=== PATIENT | male | born 1960 | race Caucasian/White ===

== ENCOUNTER 2016-07-06 10:14 | Emergency (ER) | payer OTHER ==
--- NOTE | 2016-07-06 10:53 | ED ORDER SUMMARY ---
..... Patient: RAMEZ KAUR OrderSheet [facility] VisitID: [id number] [address] [place] [address] 55y, M Registration Date/Time: 07/06/2016 ORDER SHEET Weight: 74.8 kg (stated) Allergies: No Known Drug Allergy GENERAL ORDERS: Chest 1V Urgent (10:07/06/2016 PHutchinson DO) (Ack 10:30 KHoerner) (10:34 PHutchinson DO) (Cancelled: Other10:34 PHutchinson DO) Inshore Undersea Warfare Officer (Continuous) (:07/06/2016 PHutchinson DO) (10:33 PHutchinson DO) (Cancelled: Other10:33 PHutchinson DO) UA-Culture if indicated Urgent (:07/06/2016 PHutchinson DO) (Ack 10:30 KHoerner) (10:33 PHutchinson DO) (Cancelled: Other10:33 PHutchinson DO) Cardiac Panel Stat (:07/06/2016 PHutchinson DO) (Ack 10:30 KHoerner) (10:33 PHutchinson DO) (Cancelled: Other10:33 PHutchinson DO) BNP Urgent (:07/06/2016 PHutchinson DO) (Ack 10:30 KHoerner) (10:34 PHutchinson DO) (Cancelled: Other10:34 PHutchinson DO) Amylase Urgent (:07/06/2016 PHutchinson DO) (Ack 10:30 KHoerner) (10:34 PHutchinson DO) (Cancelled: Other10:34 PHutchinson DO) Lipase Urgent (:07/06/2016 PHutchinson DO) (Ack 10:30 KHoerner) (10:34 PHutchinson DO) (Cancelled: Other10:34 PHutchinson DO) PT with INR Urgent (:07/06/2016 PHutchinson DO) (Ack 10:30 KHoerner) (10:34 PHutchinson DO) (Cancelled: Other10:34 PHutchinson DO) Oxygen (2 L/min) (NC) (10:07/06/2016 [facility]) (10:[facility]) (Cancelled: Other10:33 [facility] DO) Pulse oximeter (10:07/06/2016 [facility]) (Cancelled: Other10:36 MWinterer R.N.) EKG - ER Stat (10:07/06/2016 [facility]) (10:33 [facility] DO) (Cancelled: Other10:33 [facility] DO) Vitals (10:07/06/2016 [facility]) (10:36 MWinterer R.N.) MEDICATION ORDERS: Aspirin PO 325 mg (NOW) (10:07/06/2016 [facility]) (Cancelled: Other10:34 [facility]) Ibuprofen PO 600 mg (NOW) (10:07/06/2016 [facility]) (Ack 10:36 MWinterer R.N.) (10:41 MWinterer R.N.) Zofran ODT PO 4 mg (NOW) (10:07/06/2016 [facility]) (Ack 10:36 MWinterer R.N.) (Cancelled: Patient [id number]:41 MWinterer R.N.) IV FLUIDS: IV NS : initial bolus 500 mL (1000 mL/hr), then 250 mL/hr for X2 (NOW) (10:07/06/2016 [facility]) (Cancelled: Other10:34 [facility]) ORDER SHEET NOTES: [Electronically signed by Sharon Vee R.N. (11:07/06/2016)] [Electronically signed by Juancho Brush DO (15:02 07/06/2016)] [Electronically locked/signed by Sharon Vee R.N. (11:07/06/2016)]
--- NOTE | 2016-07-06 10:53 | ED ORDER SUMMARY ---
..... Patient: RAMEZ KAUR OrderSheet [facility] VisitID: [id number] [address] [place] [address] 55y, M Registration Date/Time: 07/06/2016 ORDER SHEET Weight: 74.8 kg (stated) Allergies: No Known Drug Allergy GENERAL ORDERS: Chest 1V Urgent (10:07/06/2016 PHutchinson DO) (Ack 10:30 KHoerner) (10:34 PHutchinson DO) (Cancelled: Other10:34 PHutchinson DO) Movement Therapist (Continuous) (:07/06/2016 PHutchinson DO) (10:33 PHutchinson DO) (Cancelled: Other10:33 PHutchinson DO) UA-Culture if indicated Urgent (:07/06/2016 PHutchinson DO) (Ack 10:30 KHoerner) (10:33 PHutchinson DO) (Cancelled: Other10:33 PHutchinson DO) Cardiac Panel Stat (:07/06/2016 PHutchinson DO) (Ack 10:30 KHoerner) (10:33 PHutchinson DO) (Cancelled: Other10:33 PHutchinson DO) BNP Urgent (:07/06/2016 PHutchinson DO) (Ack 10:30 KHoerner) (10:34 PHutchinson DO) (Cancelled: Other10:34 PHutchinson DO) Amylase Urgent (:07/06/2016 PHutchinson DO) (Ack 10:30 KHoerner) (10:34 PHutchinson DO) (Cancelled: Other10:34 PHutchinson DO) Lipase Urgent (:07/06/2016 PHutchinson DO) (Ack 10:30 KHoerner) (10:34 PHutchinson DO) (Cancelled: Other10:34 PHutchinson DO) PT with INR Urgent (:07/06/2016 PHutchinson DO) (Ack 10:30 KHoerner) (10:34 PHutchinson DO) (Cancelled: Other10:34 PHutchinson DO) Oxygen (2 L/min) ([place]) (10:07/06/2016 [facility] DO) (10:33 [facility]) (Cancelled: Other10:33 [facility] DO) Pulse oximeter (10:07/06/2016 [facility]) (Cancelled: Other10:36 MWinterer R.N.) EKG - ER Stat (10:07/06/2016 [facility]) (10:33 [facility] DO) (Cancelled: Other10:33 [facility] DO) Vitals (10:07/06/2016 [facility]) (10:36 MWinterer R.N.) MEDICATION ORDERS: Aspirin PO 325 mg (NOW) (10:07/06/2016 [facility]) (Cancelled: Other10:34 [facility]) Ibuprofen PO 600 mg (NOW) (10:07/06/2016 [facility]) (Ack 10:36 MWinterer R.N.) (10:41 MWinterer R.N.) Zofran ODT PO 4 mg (NOW) (10:07/06/2016 [facility]) (Ack 10:36 MWinterer R.N.) (Cancelled: Patient [id number] MWinterer R.N.) IV FLUIDS: IV NS : initial bolus 500 mL (1000 mL/hr), then 250 mL/hr for X2 (NOW) (10:07/06/2016 [facility]) (Cancelled: Other10:34 [facility]) ORDER SHEET NOTES: [Electronically signed by Sharon Vee R.N. (11:07/06/2016)] [Electronically signed by Juancho Brush DO (15:02 07/06/2016)] [Electronically locked/signed by Sharon Vee R.N. (11:07/06/2016)]
--- NOTE | 2016-07-06 10:53 | ED NURSING NOTES ---
Clinical Report - Nurses [facility] [place] [address] [address] 07/06/2016 10:21 Patient: RAMEZ KAUR TRIAGE Acuity: LEVEL 3. Chief Complaint: RIGHT UPPER EXTREMITY PAIN. Alert. No acute distress. SEPSIS SCREEN: Sepsis Screen. Negative (no infection suspected/documented). WILEY COMA SCORE: Wiley Coma Scale: 15- eyes open spontaneously (4); best verbal response- oriented x 4 (5); best motor response- obeys commands (6). --10:35 Sharon Vee R.N. 10:27 07/06/16. BP: 108/81. HR: 74. RR: 20. O2 saturation: 96% on room air. Temp: 98.1 F (oral). Pain level now: 10/25. --10:35 Sharon Vee R.N. Weight: 74.8 kg stated. Height/Length: 70 inches Per Patient. BMI: 23.7. --10:34 Sharon Vee R.N. Medications None. --10:33 Sharon Vee R.N. Medication/allergy information source: the patient. --10:35 Sharon Vee R.N. Allergies No Known Drug Allergy. --10:33 Sharon Vee R.N. History Arrived by private vehicle. Historian: patient. Accompanied by spouse. Primary physician (none). This occurred (3 days ago). ( Pt reports he had cellulitis in his right arm approx 3 years ago and was hospitalized. He states the same symptoms now.). Has had no swelling. No fever, skin rash or itching. Treatment SPORTS JOURNALIST: None. SOCIAL HX: Current every day heavy tobacco smoker (cigarette). History of occasional drug use: marijuana. No alcohol use. FALL RISK ASSESSMENT: Fall risk assessment completed. No fall risk identified. NUTRITIONAL RISK ASSESSMENT: The nutritional risk assessment revealed no deficiencies. FUNCTIONAL ASSESSMENT: Functional assessment: no impairments noted. LEARNING NEEDS ASSESSMENT: The learning needs assessment revealed no barriers. SKIN INTEGRITY ASSESSMENT: Skin integrity risk assessment completed. No skin integrity risk identified. --10:35 Sharon Vee R.N. Assessment GENERAL / NEURO / PSYCH: Alert. Oriented X 4. Appears in no acute distress. Patient appears calm and cooperative. RESPIRATORY: Respirations not labored. CVS: Capillary refill less than 2 seconds. GI / : Abdomen nontender. SKIN: Mucous membranes are pink. Skin is warm and dry. --10:35 Sharon Vee R.N. Interventions ID band on patient. To treatment room. --10:35 Sharon Vee R.N. PHYSICAL ASSESSMENT 10:35 07/06/16. Ambulatory to room. GENERAL / NEURO / PSYCH: Oriented X 4. Alert. Appears in no acute distress. EXTREMITIES: Extremities exhibit normal ROM. Neuro-vascular status intact to the extremity. No upper extremity edema. Right arm: tenderness. SKIN: Skin intact. Skin is warm and dry. --10:35 Sharon Vee R.N. NURSING PROGRESS NOTES 10:35 07/06/16. Patient gowned. Two patient identifiers checked. Call light placed in reach. Side rails up x 2. Bed placed in lowest position. Brakes of bed on. Patient ready for evaluation- chart flagged. --10:35 Sharon Vee R.N. 10:41 07/06/2016 Ibuprofen PO 600 mg given. Allergies verified and confirmed 5 rights. --10:41 Sharon Vee R.N. DISPOSITION / DISCHARGE Departure time: 10:50 Jul 06 2016. Condition at departure: improved and stable. No learning barriers present. Reviewed medication(s) side effects, precautions and dosing information. Prescription(s) given to the patient (Ibuprophen 600 mg). Patient verbalized understanding. Written instructions provided in [place]. The patient was discharged by the physician. He was discharged home and accompanied by spouse. He left the Emergency Department ambulatory and via private vehicle. Spouse driving. --11:06 Sharon Vee R.N. 11:05 07/06/16. BP: deferred. --11:06 Sharon Vee R.N. Locked/Released at 07/06/2016 11:07 by Sharon Vee R.N.
--- NOTE | 2016-07-06 10:53 | ED CLINICAL REPORT ---
Clinical Report - Physicians/Mid Levels [facility] [address] [place] [address] 07/06/2016 10:21 Patient: RAMEZ KAUR Time Seen: 10:27. Arrived- By private vehicle. Historian- patient. HISTORY OF PRESENT ILLNESS Chief Complaint: UPPER EXTREMITY PAIN. Severity is described as being moderate in degree. The quality is noted to be "pain". No radiation. This started about 3 days ago and is still present. It was gradual in onset and has been waxing/waning. Modifying factors- worsened by movement. Made better by rest. Symptoms located in the area of the right arm and right forearm. No chest pain, difficulty breathing, swelling, sensory loss or motor loss. He has not had redness. (States has been doing some physical work recently, but does not recall a specific injury). Patient notes the possibility of an injury. Mechanism of injury- he was lifting (working with arm). Occurred at home. Similar symptoms previously: ( Pt reports he had cellulitis in his right arm approx 3 years ago and was hospitalized. He states similar symptoms now, but no redness or swelling now.). Recent medical care: Not recently seen/assessed. REVIEW OF SYSTEMS No fever, chills, headache, sore throat or cough. No skin rash, enlarged lymph nodes, neck pain, abdominal pain or nausea. No vomiting, diarrhea, black stools, difficulty with urination or urinary frequency. No hematuria or bloody stools. No skin break that he is aware of. No injection drug use. PAST HISTORY See nurses notes. No history of peripheral vascular disease or DVT. The patient's dominant hand is the right. Has not had recent surgery or recent [place]. No history of CHF, cancer, DVT or pulmonary embolism or umbrella filter. Does not have advanced age as a risk factor or immobility as a risk factor. Is not obese. Cellulitis. Surgeries: No history of previous surgery. SOCIAL HISTORY Smoker- current status unknown. History of occasional drug use: marijuana. No alcohol use. ADDITIONAL NOTES The nursing notes have been reviewed. PHYSICAL EXAM Vital Signs: 07/06/2016 10:27 BP: 108/81. HR: 74. RR: 20. O2 saturation: 96%. Temp: 98.1 F. Pain level now: 10/25. Appearance: Alert. Oriented X3. No acute distress. Eyes: Eyes normal inspection. No pale conjunctivae or scleral icterus. ENT: Pharynx normal. The mucous membranes are not dry. No pharyngeal erythema or tonsillar exudate. Neck: Normal inspection. Neck supple. CVS: Normal heart rate and rhythm. Heart sounds normal. Respiratory: No respiratory distress. Breath sounds normal. Abdomen: Soft and nontender. Back: Normal inspection. No tenderness. Skin: Skin intact. Skin warm and dry. Normal skin color. Normal skin turgor. (tattoo over the right forearm). Extremities: Right arm: mild tenderness located in the lateral aspect of lower arm. Neurovascular intact distally. No erythema, swelling, laceration, abrasion or ecchymosis. No puncture wound, foreign body or deformity. Right elbow. (no tenderness at the elbow joint). No tenderness or swelling. Right forearm: moderate tenderness located in the proximal radial aspect of forearm. Neurovascular intact distally. (localized to Brachioradialis M). No erythema, swelling, laceration, abrasion or ecchymosis. No puncture wound or foreign body. No deformity consistent with a fracture or dislocation. Extremities otherwise negative. Neuro: Oriented X 3. No motor deficit. No sensory deficit. LABS, X-RAYS, AND EKG Pulse Oximetry: 07/06/2016 10:27 O2 saturation: 96%. (FIO2 - room air). Interpretation: normal. PROGRESS AND PROCEDURES Course of Care: Ibuprofen 600 mg PO given. Zofran 4 mg ODT PO given. No signs of cellulitis / abscess or DVT now. Imaging or lab is not clinically indicated. Pt will need close out pt follow up which I have arranged. He is informed of the signs and symptoms to watch and follow up with pcp for and / or return to the ED. Patient/family counseled. Differential Diagnosis: I considered myocardial infarction, unstable angina, angina, aortic dissection, pericarditis, pulmonary embolism, pneumonia and pneumothorax as a possible cause of chest pain in this patient. Disposition: Discharged. Condition: stable and improved. CLINICAL IMPRESSION Acute upper extremity pain involving the right upper arm and right forearm. Muscle strain of the right triceps and right brachioradialis. Clinical picture does not suggest cellulitis or deep venous thrombosis. INSTRUCTIONS Apply ice. Elevate affected areas above chest level. Warnings: Further evaluation is necessary. It is very important to follow up with a physician. INFECTION: Watch for signs of infection (increasing heat and redness, pus-like drainage, swelling, or increased pain). Return or see your doctor if these signs occur. GENERAL WARNINGS: Return or contact your physician immediately if your condition worsens or changes unexpectedly, if not improving as expected, or if other problems arise. Prescription Medications: Ibuprofen 600mg tablets: take 1 tablet orally every 8 hours as needed for pain. Dispense thirty (30). No refills. OTC Medications: Acetaminophen (available over the counter): take according to label instructions. Follow-up with: [facility], , , [address], [facility], [id number] Follow up Tuesday. Call for the next available appointment. Reason for referral: AN APPOINTMENT HAS BEEN MADE FOR YOU FOR TuesdayJULY 09 AT 12:00 PM - PLEASE ARRIVE 10 MIN EARLY. (Electronically signed by Juancho Brush DO 07/06/2016 15:02)
--- NOTE | 2016-07-06 10:53 | ED NURSING NOTES ---
Clinical Report - Nurses [facility] [place] [address] [place] [address] 07/06/2016 10:21 Patient: RAMEZ KAUR TRIAGE Acuity: LEVEL 3. Chief Complaint: RIGHT UPPER EXTREMITY PAIN. Alert. No acute distress. SEPSIS SCREEN: Sepsis Screen. Negative (no infection suspected/documented). WILEY COMA SCORE: Wiley Coma Scale: 15- eyes open spontaneously (4); best verbal response- oriented x 4 (5); best motor response- obeys commands (6). --10:35 Sharon Vee R.N. 10:27 07/06/16. BP: 108/81. HR: 74. RR: 20. O2 saturation: 96% on room air. Temp: 98.1 F (oral). Pain level now: 10/25. --10:35 Sharon Vee R.N. Weight: 74.8 kg stated. Height/Length: 70 inches Per Patient. BMI: 23.7. --10:34 Sharon Vee R.N. Medications None. --10:33 Sharon Vee R.N. Medication/allergy information source: the patient. --10:35 Sharon Vee R.N. Allergies No Known Drug Allergy. --10:33 Sharon Vee R.N. History Arrived by private vehicle. Historian: patient. Accompanied by spouse. Primary physician (none). This occurred (3 days ago). ( Pt reports he had cellulitis in his right arm approx 3 years ago and was hospitalized. He states the same symptoms now.). Has had no swelling. No fever, skin rash or itching. Treatment HAND COKE DRAWER: None. SOCIAL HX: Current every day heavy tobacco smoker (cigarette). History of occasional drug use: marijuana. No alcohol use. FALL RISK ASSESSMENT: Fall risk assessment completed. No fall risk identified. NUTRITIONAL RISK ASSESSMENT: The nutritional risk assessment revealed no deficiencies. FUNCTIONAL ASSESSMENT: Functional assessment: no impairments noted. LEARNING NEEDS ASSESSMENT: The learning needs assessment revealed no barriers. SKIN INTEGRITY ASSESSMENT: Skin integrity risk assessment completed. No skin integrity risk identified. --10:35 Sharon Vee R.N. Assessment GENERAL / NEURO / PSYCH: Alert. Oriented X 4. Appears in no acute distress. Patient appears calm and cooperative. RESPIRATORY: Respirations not labored. CVS: Capillary refill less than 2 seconds. GI / : Abdomen nontender. SKIN: Mucous membranes are pink. Skin is warm and dry. --10:35 Sharon Vee R.N. Interventions ID band on patient. To treatment room. --10:35 Sharon Vee R.N. PHYSICAL ASSESSMENT 10:35 07/06/16. Ambulatory to room. GENERAL / NEURO / PSYCH: Oriented X 4. Alert. Appears in no acute distress. EXTREMITIES: Extremities exhibit normal ROM. Neuro-vascular status intact to the extremity. No upper extremity edema. Right arm: tenderness. SKIN: Skin intact. Skin is warm and dry. --10:35 Sharon Vee R.N. NURSING PROGRESS NOTES 10:35 07/06/16. Patient gowned. Two patient identifiers checked. Call light placed in reach. Side rails up x 2. Bed placed in lowest position. Brakes of bed on. Patient ready for evaluation- chart flagged. --10:35 Sharon Vee R.N. 10:41 07/06/2016 Ibuprofen PO 600 mg given. Allergies verified and confirmed 5 rights. --10:41 Sharon Vee R.N. DISPOSITION / DISCHARGE Departure time: 10:50 Jul 06 2016. Condition at departure: improved and stable. No learning barriers present. Reviewed medication(s) side effects, precautions and dosing information. Prescription(s) given to the patient (Ibuprophen 600 mg). Patient verbalized understanding. Written instructions provided in [place]. The patient was discharged by the physician. He was discharged home and accompanied by spouse. He left the Emergency Department ambulatory and via private vehicle. Spouse driving. --11:06 Sharno Vee R.N. 11:05 07/06/16. BP: deferred. --11:06 Sharon Vee R.N. Locked/Released at 07/06/2016 11:07 by Sharon Vee R.N.
--- NOTE | 2016-07-06 10:53 | ED CLINICAL REPORT ---
Clinical Report - Physicians/Mid Levels [facility] [address] [place] [address] 07/06/2016 10:21 Patient: RAMEZ KAUR Time Seen: 10:27. Arrived- By private vehicle. Historian- patient. HISTORY OF PRESENT ILLNESS Chief Complaint: UPPER EXTREMITY PAIN. Severity is described as being moderate in degree. The quality is noted to be "pain". No radiation. This started about 3 days ago and is still present. It was gradual in onset and has been waxing/waning. Modifying factors- worsened by movement. Made better by rest. Symptoms located in the area of the right arm and right forearm. No chest pain, difficulty breathing, swelling, sensory loss or motor loss. He has not had redness. (States has been doing some physical work recently, but does not recall a specific injury). Patient notes the possibility of an injury. Mechanism of injury- he was lifting (working with arm). Occurred at home. Similar symptoms previously: ( Pt reports he had cellulitis in his right arm approx 3 years ago and was hospitalized. He states similar symptoms now, but no redness or swelling now.). Recent medical care: Not recently seen/assessed. REVIEW OF SYSTEMS No fever, chills, headache, sore throat or cough. No skin rash, enlarged lymph nodes, neck pain, abdominal pain or nausea. No vomiting, diarrhea, black stools, difficulty with urination or urinary frequency. No hematuria or bloody stools. No skin break that he is aware of. No injection drug use. PAST HISTORY See nurses notes. No history of peripheral vascular disease or DVT. The patient's dominant hand is the right. Has not had recent surgery or recent [place]. No history of CHF, cancer, DVT or pulmonary embolism or umbrella filter. Does not have advanced age as a risk factor or immobility as a risk factor. Is not obese. Cellulitis. Surgeries: No history of previous surgery. SOCIAL HISTORY Smoker- current status unknown. History of occasional drug use: marijuana. No alcohol use. ADDITIONAL NOTES The nursing notes have been reviewed. PHYSICAL EXAM Vital Signs: 07/06/2016 10:27 BP: 108/81. HR: 74. RR: 20. O2 saturation: 96%. Temp: 98.1 F. Pain level now: 10/25. Appearance: Alert. Oriented X3. No acute distress. Eyes: Eyes normal inspection. No pale conjunctivae or scleral icterus. ENT: Pharynx normal. The mucous membranes are not dry. No pharyngeal erythema or tonsillar exudate. Neck: Normal inspection. Neck supple. CVS: Normal heart rate and rhythm. Heart sounds normal. Respiratory: No respiratory distress. Breath sounds normal. Abdomen: Soft and nontender. Back: Normal inspection. No tenderness. Skin: Skin intact. Skin warm and dry. Normal skin color. Normal skin turgor. (tattoo over the right forearm). Extremities: Right arm: mild tenderness located in the lateral aspect of lower arm. Neurovascular intact distally. No erythema, swelling, laceration, abrasion or ecchymosis. No puncture wound, foreign body or deformity. Right elbow. (no tenderness at the elbow joint). No tenderness or swelling. Right forearm: moderate tenderness located in the proximal radial aspect of forearm. Neurovascular intact distally. (localized to Brachioradialis M). No erythema, swelling, laceration, abrasion or ecchymosis. No puncture wound or foreign body. No deformity consistent with a fracture or dislocation. Extremities otherwise negative. Neuro: Oriented X 3. No motor deficit. No sensory deficit. LABS, X-RAYS, AND EKG Pulse Oximetry: 07/06/2016 10:27 O2 saturation: 96%. (FIO2 - room air). Interpretation: normal. PROGRESS AND PROCEDURES Course of Care: Ibuprofen 600 mg PO given. Zofran 4 mg ODT PO given. No signs of cellulitis / abscess or DVT now. Imaging or lab is not clinically indicated. Pt will need close out pt follow up which I have arranged. He is informed of the signs and symptoms to watch and follow up with pcp for and / or return to the ED. Patient/family counseled. Differential Diagnosis: I considered myocardial infarction, unstable angina, angina, aortic dissection, pericarditis, pulmonary embolism, pneumonia and pneumothorax as a possible cause of chest pain in this patient. Disposition: Discharged. Condition: stable and improved. CLINICAL IMPRESSION Acute upper extremity pain involving the right upper arm and right forearm. Muscle strain of the right triceps and right brachioradialis. Clinical picture does not suggest cellulitis or deep venous thrombosis. INSTRUCTIONS Apply ice. Elevate affected areas above chest level. Warnings: Further evaluation is necessary. It is very important to follow up with a physician. INFECTION: Watch for signs of infection (increasing heat and redness, pus-like drainage, swelling, or increased pain). Return or see your doctor if these signs occur. GENERAL WARNINGS: Return or contact your physician immediately if your condition worsens or changes unexpectedly, if not improving as expected, or if other problems arise. Prescription Medications: Ibuprofen 600mg tablets: take 1 tablet orally every 8 hours as needed for pain. Dispense thirty (30). No refills. OTC Medications: Acetaminophen (available over the counter): take according to label instructions. Follow-up with: [facility], , , [address], [facility], [id number] Follow up Tuesday. Call for the next available appointment. Reason for referral: AN APPOINTMENT HAS BEEN MADE FOR YOU FOR TuesdayJULY 09 AT 12:00 PM - PLEASE ARRIVE 10 MIN EARLY. (Electronically signed by Juancho Brush DO 07/06/2016 15:02)
--- NOTE | 2016-07-06 15:02 | ED DISCHARGE INSTRUCTIONS ---
Patient: RAMEZ KAUR General Instructions VisitID: [id number] [address] [place] [address] 55y, M Registration Date/Time: 07/06/2016 Acute upper extremity pain involving the right upper arm and right forearm. Muscle strain of the right triceps and right brachioradialis. INSTRUCTIONS Apply ice. Elevate affected areas above chest level. Warnings: Further evaluation is necessary. It is very important to follow up with a physician. INFECTION: Watch for signs of infection (increasing heat and redness, pus-like drainage, swelling, or increased pain). Return or see your doctor if these signs occur. GENERAL WARNINGS: Return or contact your physician immediately if your condition worsens or changes unexpectedly, if not improving as expected, or if other problems arise. Prescription Medications: Ibuprofen 600mg tablets: take 1 tablet orally every 8 hours as needed for pain. Dispense thirty (30). No refills. OTC Medications: Acetaminophen (available over the counter): take according to label instructions. Follow-up with: [facility], , , [address], , [place], [id number] Follow up Tuesday. Call for the next available appointment. Reason for referral: AN APPOINTMENT HAS BEEN MADE FOR YOU FOR TuesdayJULY 09 AT 12:00 PM - PLEASE ARRIVE 10 MIN EARLY. ADDITIONAL INFORMATION Muscle Strain,Extremity A MUSCLE STRAIN is a stretching and tearing of muscle fibers. This causes pain, especially with motion of that muscle. There may also be some swelling and bruising. Home Care: 1) Keep the injured area raised to reduce pain and swelling. This is especially important during the first 48 hours. 2) Make an ice pack (ice cubes in a plastic bag, wrapped in a towel) and apply for 20 minutes every 1-2 hours the first day. You should continue with ice packs 3-4 times a day for the second and third days. Unless otherwise instructed, on the fourth day you may begin hot soaks or hot packs (small towel soaked in hot water) 3-4 times a day while you gently exercise the involved area. 3) You may use acetaminophen (Tylenol) or ibuprofen (Motrin, Advil) to control pain, unless another medicine was prescribed. [ NOTE : If you have chronic liver or kidney disease or ever had a stomach ulcer or GI bleeding, talk with your doctor before using these medicines.] 4) For LEG STRAINS: If CRUTCHES have been recommended, do not bear full weight on the injured leg until you can do so without pain. You may return to sports when you are able to hop and run on the injured leg without pain. Follow Up with your doctor or this facility if you are not improving within the next five days. Get Prompt Medical Attention if any of the following occur: -- Fingers or toes become swollen, cold, blue, numb or tingly -- Pain or swelling increases Ibuprofen Oral tablet What is this medicine? IBUPROFEN (eye BYOO proe fen) is a non-steroidal anti-inflammatory drug (NSAID). It is used for dental pain, fever, headaches or migraines, osteoarthritis, rheumatoid arthritis, or painful monthly periods. It can also relieve minor aches and pains caused by a cold, flu, or sore throat. How should I use this medicine? Take this medicine by mouth with a glass of water. Follow the directions on the prescription label. Take this medicine with food if your stomach gets upset. Try to not lie down for at least 10 minutes after you take the medicine. Take your medicine at regular intervals. Do not take your medicine more often than directed. A special MedGuide will be given to you by the pharmacist with each prescription and refill. Be sure to read this information carefully each time. Talk to your old testament professor regarding the use of this medicine in children. Special care may be needed. What side effects may I notice from receiving this medicine? Side effects that you should report to your doctor or health reproductive healthcare assistant as soon as possible: allergic reactions like skin rash, itching or hives, swelling of the face, lips, or tongue black or bloody stools, blood in the urine or in vomit breathing problems changes in vision chest pain general ill feeling or flu-like symptoms nausea or vomiting redness, blistering, peeling or loosening of the skin, including inside the mouth slurred speech or weakness on one side of the body stomach pain unexplained weight gain or swelling unusually weak or tired yellowing of eyes or skin Side effects that usually do not require medical attention (report to your doctor or health reproductive healthcare assistant if they continue or are bothersome): constipation or diarrhea dizziness gas or heartburn stomach upset What may interact with this medicine? Do not take this medicine with any of the following medications: cidofovir ketorolac methotrexate pemetrexed This medicine may also interact with the following medications: alcohol aspirin diuretics lithium other drugs for inflammation like prednisone warfarin What if I miss a dose? If you miss a dose, take it as soon as you can. If it is almost time for your next dose, take only that dose. Do not take double or extra doses. Where should I keep my medicine? Keep out of the reach of children. Store at room temperature between 15 and 30 degrees C (59 and 86 degrees F). Keep container tightly closed. Throw away any unused medicine after the expiration date. What should I tell my health care provider before I take this medicine? They need to know if you have any of these conditions: asthma cigarette smoker drink more than 3 alcohol containing drinks a day heart disease or circulation problems such as heart failure or leg edema (fluid retention) high blood pressure kidney disease liver disease stomach bleeding or ulcers an unusual or allergic reaction to ibuprofen, aspirin, other NSAIDS, other medicines, foods, dyes, or preservatives or trying to get breast-feeding What should I watch for while using this medicine? Tell your doctor or healthcare professional if your symptoms do not start to get better or if they get worse. This medicine does not prevent heart attack or stroke. In fact, this medicine may increase the chance of a heart attack or stroke. The chance may increase with longer use of this medicine and in people who have heart disease. If you take aspirin to prevent heart attack or stroke, talk with your doctor or health reproductive healthcare assistant. Do not take other medicines that contain aspirin, ibuprofen, or naproxen with this medicine. Side effects such as stomach upset, nausea, or ulcers may be more likely to occur. Many medicines available without a prescription should not be taken with this medicine. This medicine can cause ulcers and bleeding in the stomach and intestines at any time during treatment. Ulcers and bleeding can happen without warning symptoms and can cause . To reduce your risk, do not smoke cigarettes or drink alcohol while you are taking this medicine. You may get drowsy or dizzy. Do not drive, use machinery, or do anything that needs mental alertness until you know how this medicine affects you. Do not stand or sit up quickly, especially if you are an older patient. This reduces the risk of dizzy or fainting spells. This medicine can cause you to bleed more easily. Try to avoid damage to your teeth and gums when you brush or floss your teeth. Acetaminophen Oral tablet What is this medicine? ACETAMINOPHEN (a set a CATHERINE jessica fen) is a pain reliever. It is used to treat mild pain and fever. How should I use this medicine? Take this medicine by mouth with a glass of water. Follow the directions on the package or prescription label. Take your medicine at regular intervals. Do not take your medicine more often than directed. Talk to your old testament professor regarding the use of this medicine in children. While this drug may be prescribed for children as young as 6 years of age for selected conditions, precautions do apply. What side effects may I notice from receiving this medicine? Side effects that you should report to your doctor or health reproductive healthcare assistant as soon as possible: allergic reactions like skin rash, itching or hives, swelling of the face, lips, or tongue breathing problems fever or sore throat redness, blistering, peeling or loosening of the skin, including inside the mouth trouble passing urine or change in the amount of urine unusual bleeding or bruising unusually weak or tired yellowing of the eyes or skin Side effects that usually do not require medical attention (report to your doctor or health reproductive healthcare assistant if they continue or are bothersome): headache nausea, stomach upset What may interact with this medicine? alcohol imatinib isoniazid other medicines with acetaminophen What if I miss a dose? If you miss a dose, take it as soon as you can. If it is almost time for your next dose, take only that dose. Do not take double or extra doses. Where should I keep my medicine? Keep out of reach of children. Store at room temperature between 20 and 25 degrees C (68 and 77 degrees F). Protect from moisture and heat. Throw away any unused medicine after the expiration date. What should I tell my health care provider before I take this medicine? They need to know if you have any of these conditions: if you frequently drink alcohol containing drinks liver disease an unusual or allergic reaction to acetaminophen, other medicines, foods, dyes or preservatives or trying to get breast-feeding What should I watch for while using this medicine? Tell your doctor or health reproductive healthcare assistant if the pain lasts more than 10 days (5 days for children), if it gets worse, or if there is a new or different kind of pain. Also, check with your doctor if a fever lasts for more than 3 days. Do not take other medicines that contain acetaminophen with this medicine. Always read labels carefully. If you have questions, ask your doctor or pharmacist. If you take too much acetaminophen get medical help right away. Too much acetaminophen can be very dangerous and cause liver damage. Even if you do not have symptoms, it is important to get help right away. You have been given the following additional information: Muscle Strain, Extremity Ibuprofen Oral tablet Acetaminophen Oral tablet (Electronically signed by Juancho Brush DO 07/06/2016 15:02)
--- NOTE | 2016-07-06 15:02 | ED MED RECONCILIATION SUMMARY ---
Patient: RAMEZ KAUR Medication Reconciliation Report [facility] VisitID: [id number] [address] [place] [address] 55y, M Registration Date/Time: 07/06/2016 Weight: 74.8 kg Height/Length: 70 in. BMI: 23.7 ALLERGIES: No Known Drug Allergy The patient's Home Medications are listed below: NONE. The source(s) of the original Home Medication information: patient The following Medications were given to the patient in the Emergency Department: Ibuprofen [PO] PO 600 mg, administered: 07/06/2016 10:41:00 AM The following Medications were prescribed to the patient: Acetaminophen (available over the counter): take according to label instructions. -- Juancho Brush DO Ibuprofen 600mg tablets: take 1 tablet orally every 8 hours as needed for pain. Dispense thirty (30). No refills. -- Juancho Brush DO
--- NOTE | 2016-07-06 15:02 | ED MAR SUMMARY ---
..... Medication Administration Record [facility] [address] [place] [address] Patient: RAMEZ KAUR Visit ID: [id number] 55y, M Weight: 74.8 kg Height/Length: 70 in BMI: 23.7 ALLERGIES: No Known Drug Allergy Given 10:41 07/06/2016 Sharon Vee R.N. Medication Administered: IBUPROFEN [PO], Dose: 600 mg PO. Medication Ordered: Ibuprofen PO 600 mg (NOW).
--- NOTE | 2016-07-06 15:02 | ED MED RECONCILIATION SUMMARY ---
Patient: RAMEZ KAUR Medication Reconciliation Report [facility] VisitID: [id number] [address] [place] [address] 55y, M Registration Date/Time: 07/06/2016 Weight: 74.8 kg Height/Length: 70 in. BMI: 23.7 ALLERGIES: No Known Drug Allergy The patient's Home Medications are listed below: NONE. The source(s) of the original Home Medication information: patient The following Medications were given to the patient in the Emergency Department: Ibuprofen [PO] PO 600 mg, administered: 07/06/2016 10:41:00 AM The following Medications were prescribed to the patient: Acetaminophen (available over the counter): take according to label instructions. -- Juancho Brush DO Ibuprofen 600mg tablets: take 1 tablet orally every 8 hours as needed for pain. Dispense thirty (30). No refills. -- Juancho Brush DO
--- NOTE | 2016-07-06 15:02 | ED MAR SUMMARY ---
..... Medication Administration Record [facility] [address] [place] [address] Patient: RAMEZ KAUR Visit ID: [id number] 55y, M Weight: 74.8 kg Height/Length: 70 in BMI: 23.7 ALLERGIES: No Known Drug Allergy Given 10:41 07/06/2016 Sharon Vee R.N. Medication Administered: IBUPROFEN [PO], Dose: 600 mg PO. Medication Ordered: Ibuprofen PO 600 mg (NOW).
--- NOTE | 2016-07-06 15:02 | ED DISCHARGE INSTRUCTIONS ---
Patient: RAMEZ KAUR General Instructions [facility] VisitID: [id number] [address] [place] [address] 55y, M Registration Date/Time: 07/06/2016 Acute upper extremity pain involving the right upper arm and right forearm. Muscle strain of the right triceps and right brachioradialis. INSTRUCTIONS Apply ice. Elevate affected areas above chest level. Warnings: Further evaluation is necessary. It is very important to follow up with a physician. INFECTION: Watch for signs of infection (increasing heat and redness, pus-like drainage, swelling, or increased pain). Return or see your doctor if these signs occur. GENERAL WARNINGS: Return or contact your physician immediately if your condition worsens or changes unexpectedly, if not improving as expected, or if other problems arise. Prescription Medications: Ibuprofen 600mg tablets: take 1 tablet orally every 8 hours as needed for pain. Dispense thirty (30). No refills. OTC Medications: Acetaminophen (available over the counter): take according to label instructions. Follow-up with: [facility], , , [address], , [place], [address] Follow up Tuesday. Call for the next available appointment. Reason for referral: AN APPOINTMENT HAS BEEN MADE FOR YOU FOR TuesdayJULY 09 AT 12:00 PM - PLEASE ARRIVE 10 MIN EARLY. ADDITIONAL INFORMATION Muscle Strain,Extremity A MUSCLE STRAIN is a stretching and tearing of muscle fibers. This causes pain, especially with motion of that muscle. There may also be some swelling and bruising. Home Care: 1) Keep the injured area raised to reduce pain and swelling. This is especially important during the first 48 hours. 2) Make an ice pack (ice cubes in a plastic bag, wrapped in a towel) and apply for 20 minutes every 1-2 hours the first day. You should continue with ice packs 3-4 times a day for the second and third days. Unless otherwise instructed, on the fourth day you may begin hot soaks or hot packs (small towel soaked in hot water) 3-4 times a day while you gently exercise the involved area. 3) You may use acetaminophen (Tylenol) or ibuprofen (Motrin, Advil) to control pain, unless another medicine was prescribed. [ NOTE : If you have chronic liver or kidney disease or ever had a stomach ulcer or GI bleeding, talk with your doctor before using these medicines.] 4) For LEG STRAINS: If CRUTCHES have been recommended, do not bear full weight on the injured leg until you can do so without pain. You may return to sports when you are able to hop and run on the injured leg without pain. Follow Up with your doctor or this facility if you are not improving within the next five days. Get Prompt Medical Attention if any of the following occur: -- Fingers or toes become swollen, cold, blue, numb or tingly -- Pain or swelling increases Ibuprofen Oral tablet What is this medicine? IBUPROFEN (eye BYOO proe fen) is a non-steroidal anti-inflammatory drug (NSAID). It is used for dental pain, fever, headaches or migraines, osteoarthritis, rheumatoid arthritis, or painful monthly periods. It can also relieve minor aches and pains caused by a cold, flu, or sore throat. How should I use this medicine? Take this medicine by mouth with a glass of water. Follow the directions on the prescription label. Take this medicine with food if your stomach gets upset. Try to not lie down for at least 10 minutes after you take the medicine. Take your medicine at regular intervals. Do not take your medicine more often than directed. A special MedGuide will be given to you by the pharmacist with each prescription and refill. Be sure to read this information carefully each time. Talk to your slope hoist operator regarding the use of this medicine in children. Special care may be needed. What side effects may I notice from receiving this medicine? Side effects that you should report to your doctor or health adult live in caregiver as soon as possible: allergic reactions like skin rash, itching or hives, swelling of the face, lips, or tongue black or bloody stools, blood in the urine or in vomit breathing problems changes in vision chest pain general ill feeling or flu-like symptoms nausea or vomiting redness, blistering, peeling or loosening of the skin, including inside the mouth slurred speech or weakness on one side of the body stomach pain unexplained weight gain or swelling unusually weak or tired yellowing of eyes or skin Side effects that usually do not require medical attention (report to your doctor or health adult live in caregiver if they continue or are bothersome): constipation or diarrhea dizziness gas or heartburn stomach upset What may interact with this medicine? Do not take this medicine with any of the following medications: cidofovir ketorolac methotrexate pemetrexed This medicine may also interact with the following medications: alcohol aspirin diuretics lithium other drugs for inflammation like prednisone warfarin What if I miss a dose? If you miss a dose, take it as soon as you can. If it is almost time for your next dose, take only that dose. Do not take double or extra doses. Where should I keep my medicine? Keep out of the reach of children. Store at room temperature between 15 and 30 degrees C (59 and 86 degrees F). Keep container tightly closed. Throw away any unused medicine after the expiration date. What should I tell my health care provider before I take this medicine? They need to know if you have any of these conditions: asthma cigarette smoker drink more than 3 alcohol containing drinks a day heart disease or circulation problems such as heart failure or leg edema (fluid retention) high blood pressure kidney disease liver disease stomach bleeding or ulcers an unusual or allergic reaction to ibuprofen, aspirin, other NSAIDS, other medicines, foods, dyes, or preservatives or trying to get breast-feeding What should I watch for while using this medicine? Tell your doctor or healthcare professional if your symptoms do not start to get better or if they get worse. This medicine does not prevent heart attack or stroke. In fact, this medicine may increase the chance of a heart attack or stroke. The chance may increase with longer use of this medicine and in people who have heart disease. If you take aspirin to prevent heart attack or stroke, talk with your doctor or health adult live in caregiver. Do not take other medicines that contain aspirin, ibuprofen, or naproxen with this medicine. Side effects such as stomach upset, nausea, or ulcers may be more likely to occur. Many medicines available without a prescription should not be taken with this medicine. This medicine can cause ulcers and bleeding in the stomach and intestines at any time during treatment. Ulcers and bleeding can happen without warning symptoms and can cause . To reduce your risk, do not smoke cigarettes or drink alcohol while you are taking this medicine. You may get drowsy or dizzy. Do not drive, use machinery, or do anything that needs mental alertness until you know how this medicine affects you. Do not stand or sit up quickly, especially if you are an older patient. This reduces the risk of dizzy or fainting spells. This medicine can cause you to bleed more easily. Try to avoid damage to your teeth and gums when you brush or floss your teeth. Acetaminophen Oral tablet What is this medicine? ACETAMINOPHEN (a set a CATHERINE jessica fen) is a pain reliever. It is used to treat mild pain and fever. How should I use this medicine? Take this medicine by mouth with a glass of water. Follow the directions on the package or prescription label. Take your medicine at regular intervals. Do not take your medicine more often than directed. Talk to your slope hoist operator regarding the use of this medicine in children. While this drug may be prescribed for children as young as 6 years of age for selected conditions, precautions do apply. What side effects may I notice from receiving this medicine? Side effects that you should report to your doctor or health adult live in caregiver as soon as possible: allergic reactions like skin rash, itching or hives, swelling of the face, lips, or tongue breathing problems fever or sore throat redness, blistering, peeling or loosening of the skin, including inside the mouth trouble passing urine or change in the amount of urine unusual bleeding or bruising unusually weak or tired yellowing of the eyes or skin Side effects that usually do not require medical attention (report to your doctor or health adult live in caregiver if they continue or are bothersome): headache nausea, stomach upset What may interact with this medicine? alcohol imatinib isoniazid other medicines with acetaminophen What if I miss a dose? If you miss a dose, take it as soon as you can. If it is almost time for your next dose, take only that dose. Do not take double or extra doses. Where should I keep my medicine? Keep out of reach of children. Store at room temperature between 20 and 25 degrees C (68 and 77 degrees F). Protect from moisture and heat. Throw away any unused medicine after the expiration date. What should I tell my health care provider before I take this medicine? They need to know if you have any of these conditions: if you frequently drink alcohol containing drinks liver disease an unusual or allergic reaction to acetaminophen, other medicines, foods, dyes or preservatives or trying to get breast-feeding What should I watch for while using this medicine? Tell your doctor or health adult live in caregiver if the pain lasts more than 10 days (5 days for children), if it gets worse, or if there is a new or different kind of pain. Also, check with your doctor if a fever lasts for more than 3 days. Do not take other medicines that contain acetaminophen with this medicine. Always read labels carefully. If you have questions, ask your doctor or pharmacist. If you take too much acetaminophen get medical help right away. Too much acetaminophen can be very dangerous and cause liver damage. Even if you do not have symptoms, it is important to get help right away. You have been given the following additional information: Muscle Strain, Extremity Ibuprofen Oral tablet Acetaminophen Oral tablet (Electronically signed by Juancho Brush DO 07/06/2016 15:02)
== END 2016-07-06 10:50 | disposition home or self-care (01) ==
LOC: ED SRH 10:14
DX: S46.311A Strain of muscle, fascia and tendon of triceps, right arm, initial encounter (principal); M79.631 Pain in right forearm; X50.0XXA Overexertion from strenuous movement or load, initial encounter; Y93.9 Activity, unspecified; Y92.009 Unspecified place in unspecified non-institutional (private) residence as the place of occurrence of the external cause; Y99.8 Other external cause status